=== PATIENT | male | born 1990 | race African-American/Black ===

== ENCOUNTER 2020-02-28 03:30 | Emergency (ER) | payer OTHER ==
[~2020-02-28] VITALS: Ht 177.8 cm; Wt 107.5 kg
[2020-02-28 03:40] VITALS: BP 154/77
[2020-02-28] MEDS ORDERED: ACET237L PO (03:59)
--- NOTE | 2020-02-28 04:11 | PHYS DOC ---
General Adult EDM: Chief Complaint: COUGH HPI: HPI: 30-year-old male presents with 3-day history of cough and congestion. He decided to come in tonight because he was feeling a little more short of breath today than the other 2 days. He feels like his nasal congestion is slightly better than yesterday. He has had a discomfort in his chest with coughing all 3 days. It has not gotten better or worse. He denies facial pain with palpation. He has not had a fever at home. No fever on arrival. No known COVID-19 exposures. He spoke with the nurse advice line and they recommended that he come to the emergency room because of his shortness of breath and 3 days of symptoms. Review of Systems: Review of Systems: Constitutional: Denies fever or chills Eyes: Denies change in visual acuity HENT: Nasal congestion without sore throat Respiratory: Cough with shortness of breath Cardiovascular: Denies chest pain or edema GI: Denies abdominal pain, nausea, vomiting, bloody stools or diarrhea : Denies dysuria Musculoskeletal: Denies back pain or joint pain Integument: Denies rash Neurologic: Denies headache, focal weakness or sensory changes Endocrine: Denies polyuria or polydipsia Lymphatic: Denies swollen glands Psychiatric: Denies depression or anxiety Heart Score: Risk Factors: Risk Factors: DM, Current or recent (<one month) smoker, HTN, HLP, family history of CAD, obesity. Risk Scores: Score 0 - 3: 2.5% MACE over next 6 weeks - Discharge Home Score 4 - 6: 20.3% MACE over next 6 weeks - Admit for Clinical Observation Score 7 - 10: 72.7% MACE over next 6 weeks - Early Invasive Strategies Allergies: Allergies: Allergies Uncoded Allergies Type Severity Reaction Last Updated Verified PENICILLIN Allergy Intermediate rash 02/28/20 Physical Exam: PE: Constitutional: Well developed, well nourished, obese, no acute distress, non- toxic appearance. [] HENT: Normocephalic, atraumatic, bilateral external ears normal, oropharynx moist, no oral exudates, nose thick congestion. [] Eyes: PERRLA, EOMI, conjunctiva normal, no discharge. [] Neck: Normal range of motion, no tenderness, supple, no stridor. [] Cardiovascular: Heart rate regular rhythm, no murmur [] Lungs & Thorax: Bilateral breath sounds clear to auscultation [] Abdomen: Bowel sounds normal, soft, no tenderness, no masses, no pulsatile masses. [] Skin: Warm, dry, no erythema, no rash. [] Back: No tenderness, no CVA tenderness. [] Extremities: No tenderness, no cyanosis, no clubbing, ROM intact, no edema. [] Neurologic: Alert and oriented X 3, normal motor function, normal sensory function, no focal deficits noted. [] Psychologic: Affect normal, judgement normal, mood normal. [] EKG: EKG: [] Radiology/Procedures: Radiology/Procedures: [] Impressions: AP chest x-ray HISTORY: Cough. FINDINGS: Heart size normal. Mediastinal silhouette is normal. No pneumothorax, pulmonary opacities or pleural effusions. Tracheal and bronchial silhouette normal. Bones unremarkable. IMPRESSION: Normal exam. Electronically signed by: Og Palumbo MD (02/28/2020 4:16 AM) [facility] [place] DICTATED AND SIGNED BY: OG PALUMBO MD DATE: 02/28/20 0416 CC: JOY BARNETT DO; PCP,UNKNOWN ~ Course & Med Decision Making: Course & Med Decision Making Pertinent Labs and Imaging studies reviewed. (See chart for details) The patient's chest x-ray is unremarkable. The rest of his exam is reassuring. Patient appears to have a viral URI. I do not see signs of bacterial infection at this time. Antibiotics are not warranted. I have advised supportive care. He is stable for discharge at this time. [] Dragon Disclaimer: Melisa Disclaimer: This electronic medical record was generated, in whole or in part, using a voice recognition dictation system. Departure Departure: Impression: Primary Impression: Viral URI with cough Disposition: HOME/RESIDENCE PRIOR TO ADM Condition: STABLE Referrals: PCP,UNKNOWN (PCP) Patient Instructions: Upper Respiratory Infection, Adult, [id number] Scripts Benzonatate (TESSALON PERLE) 100 Mg Capsule 1 CAP PO TID PRN for COUGH, #30 CAP Prov: JOY BARNETT DO 02/28/20 JOY BARNETT DO Feb 28, 2020 04:11
[2020-02-28] MEDS ORDERED: BENZ100C PO (04:13)
[2020-02-28] MEDS ORDERED: BENZONATATE 100 MG CAPSULE. PO ONE (04:15)
--- NOTE | 2020-02-28 04:19 | RAD ---
AP chest x-ray HISTORY: Cough. FINDINGS: Heart size normal. Mediastinal silhouette is normal. No pneumothorax, pulmonary opacities or pleural effusions. Tracheal and bronchial silhouette normal. Bones unremarkable. IMPRESSION: Normal exam. Electronically signed by: Og Palumbo MD (02/28/2020 4:16 AM) [facility] [place]
== END 2020-02-28 04:20 | disposition home or self-care (01) ==
LOC: ER 03:30
DX: J06.9 Acute upper respiratory infection, unspecified (principal); Z88.0 Allergy status to penicillin
CPT/HCPCS: 71045; 99283